=== PATIENT | male | born 1975 | race Hispanic/Latino ===

== ENCOUNTER 2024-02-16 12:48 | Emergency (ER) | payer OTHER ==
[2024-02-16 13:33] LABS: Absolute Basophils 0.1 K/uL (0-0.5); Absolute Eosinophils 0.1 K/uL (0-0.5); Absolute Monocytes 0.7 K/uL (0.1-1.3); Absolute Neutrophil 4.8 K/uL (1.8-8.0); Eosinophils % 1.1 % (0-4.4); Hematocrit 42.8 % (39.6-49.0); Hemoglobin 14.6 g/dL (13.6-17.9); Lymphocytes % 14.7 % (15.3-44.8); MCH 33.6 pg (27.0-35.0); MCV 98.8 fL (80-100); MPV 8.8 fL (7.6-11.3); Monocytes % 10.4 % (3.3-12.3); Neutrophils % 72.8 % (41.7-73.7); Platelets 261 thou/uL (152-406); RBC Red Blood Cell Count 4.33 M/uL (4.33-5.43); Red Cell Distribution Width 14.8 % (12.1-15.2)
[2024-02-16 13:41] LABS: Specific Gravity 1.011 (1.005-1.030); Sqamous Epithelial <5 /HPF (None Seen); Urine Bacteria None Seen /HPF (<20); Urine Bilirubin NEGATIVE (Negative); Urine Blood Negative (Negative); Urine Clarity Clear (Clear); Urine Color Light-Yellow (Yellow); Urine Culture Reflex Order NOT NEEDED; Urine Glucose NEGATIVE (Negative); Urine Ketones NEGATIVE (Negative); Urine Microscopic Reflex YN ORDER UMIC; Urine Nitrite NEGATIVE (Negative); Urine Protein TRACE (Negative); Urine RBC <5 /HPF (None Seen); Urine Urobilinogen 1+ (Normal); Urine WBC None Seen /HPF (<5)
[2024-02-16 13:45] LABS: PT Prothrombin Time 10.8 SECONDS (9.5-12.5); PTT, Activated Partial Thromb 37.7 SECONDS (24.3-36.9); Protime INR 0.98
--- NOTE | 2024-02-16 14:15 | RAD REPORT ---
EXAM DESCRIPTION: Anamika Single View02/16/2024 1:42 pm CLINICAL HISTORY: DYSPNEA COMPARISON: No comparisons TECHNIQUE: Portable AP view of the chest. FINDINGS: The lungs are clear. Decreased inspiratory effort limits evaluation. No pneumothorax or e ffusion. The cardiomediastinal contours are unremarkable. IMPRESSION: No acute cardiopulmonary process.
[2024-02-16 14:39] LABS: Albumin 3.5 g/dL (3.4-5.0); Anion Gap 12.4 mEq/L (5.0-15.0); Globulin 3.5 g/dL (2.3-3.5); Magnesium 1.3 mg/dL (1.6-2.4); Potassium 4.4 mEq/L (3.5-5.1); Troponin High Sensitivity 15.6 pg/mL (<58.9)
[2024-02-16] MEDS ORDERED: Magnesium Sulfate 2gm IVPB 2 G/50 ML BAG IV ONE (15:38)
--- NOTE | 2024-02-16 17:11 | EDPHYS ---
Physician Documentation [facility] Name: Hiram Longo Age: 48 yrs Sex: Male : 1975 Arrival Date: 02/16/2024 Time: 12:48 Bed 17 Private MD: ED Physician Oren Peters HPI: 02/15 14:25 This 48 yrs old Male presents to ER via EMS with complaints of Chest Pain. kb 14:25 Pt is a 48 year old male who presents for sudden onset of shortness of breath and kb diaphoresis while driving just [employer]. States he pulled over and called 911 because he was afraid he was going to pass out. Denies chest pain. States he is feeling better now. . Historical: - Allergies: 13:03 No Known Allergies; db - Home Meds: 13:03 Mounjaro subcutaneous [Active]; db - PMHx: 13:03 diabetes mellitus; Hypertensive disorder; db - Immunization history:: Adult Immunizations unknown. - Infectious Disease History:: Denies. - Social history:: Smoking status: Reported history of juuling and/or vaping. ROS: 13:30 Constitutional: As per HPI kb Exam: 13:25 Constitutional: This is a well developed, well nourished patient who is awake, alert, kb and in no acute distress. Head/Face: Normocephalic, atraumatic. ENT: Moist Mucous membranes Cardiovascular: Regular rate Respiratory: Respirations even and unlabored. No increased work of breathing. Talking in full sentences Abdomen/GI: Soft, non-tender. No distention Skin: Warm, dry with normal turgor. Normal color. MS/ Extremity: Pulses equal, no cyanosis. Neurovascular intact. Full, normal range of motion. Neuro: Awake and alert, GCS 15, oriented to person, place, time, and situation. Moves all extremities. Normal gait. 13:25 ECG was reviewed by the Attending Physician. Vital Signs: 12:50 BP 165 / 79; Pulse 87; Resp 18; Temp 98.7(TE); Pulse Ox 99% ; Weight 152.41 kg; Height db 6 ft. 2 in. ; 13:15 BP 168 / 75; Pulse 89; Resp 18; Pulse Ox 98% on R/A; db 14:00 BP 155 / 71; Pulse 82; Resp 18; Pulse Ox 99% on R/A; db 15:00 BP 155 / 76; Pulse 81; Resp 18; Pulse Ox 100% on R/A; db 15:30 BP 153 / 78; Pulse 78; Resp 20; Pulse Ox 99% ; db 16:30 BP 114 / 99; Pulse 75; Resp 18; Pulse Ox 98% on R/A; db 17:00 BP 114 / 99; Pulse 76; Resp 16; Temp 98.5; Pulse Ox 99% ; db 12:50 Body Mass Index 43.14 (152.41 kg, 187.96 cm) db MDM: 13:01 Patient medically screened. kb 14:26 Data reviewed: vital signs, nurses notes. kb 17:08 Differential diagnosis: acute mi, arrhythmia, near syncope. Consideration of kb Admission/Observation Escalation of care including admission/observation considered. admission considered for increase in troponin and HPI, but pt prefers to go home. States he is feeling fine now and doesn't want to stay in the hospital. Pt educated on risks and verbalized understanding. Pt will follow up with PCP/cadiologist, as well as return for any returning symptoms. . Historians other than the Patient: EMS: [facility]. Counseling: I had a detailed discussion with the patient and/or guardian regarding the historical points, exam findings, and any diagnostic results supporting the discharge/admit diagnosis, lab results, radiology results, the need for outpatient follow up, a welt rander, a family practitioner, to return to the emergency department if symptoms worsen or persist or if there are any questions or concerns that arise at home. 17:11 Refusal of service: The patient/guardian displays adequate decision making capability kb and despite a detailed discussion of alternatives, benefits, risks, and consequences refuses: Admission to the hospital for further work-up and treatment. 02/15 13:05 Order name: CBC with Diff; Complete Time: 13:53 kb 02/15 13:05 Order name: Magnesium; Complete Time: 14:40 kb 02/15 13:05 Order name: Protime (+inr); Complete Time: 13:53 kb 02/15 13:05 Order name: Ptt, Activated; Complete Time: 13:53 kb 02/15 13:05 Order name: Troponin High Sensitivity; Complete Time: 14:40 kb 02/15 13:05 Order name: Urinalysis w/ reflexes; Complete Time: 13:53 kb 02/15 13:05 Order name: CPK; Complete Time: 14:40 kb 02/15 13:05 Order name: CMP; Complete Time: 14:40 kb 02/15 15:53 Order name: Troponin High Sensitivity; Complete Time: 16:54 kb 02/15 13:05 Order name: Chest Single View XRAY; Complete Time: 14:24 kb 02/15 13:05 Order name: Cardiac monitoring; Complete Time: 13: kb 02/15 13:05 Order name: EKG - Nurse/Tech; Complete Time: 13: kb 02/15 13:05 Order name: IV Saline Lock; Complete Time: 13: kb 02/15 13:05 Order name: Labs collected and sent; Complete Time: 13: kb 02/15 13:05 Order name: NPO; Complete Time: 13: kb 02/15 13:05 Order name: O2 Per Protocol; Complete Time: 13: kb 02/15 13:05 Order name: O2 Sat Monitoring; Complete Time: 13: kb 02/15 13:38 Order name: Labs - recollect needed: recollect green top; Complete Time: 14:18 bd EC:25 Rate is 88 beats/min. Rhythm is regular. QRS [place] is Normal. NH interval is normal at kb 172 msec. QRS interval is normal at 96 msec. QT interval is normal at 423 msec. Clinical impression: Normal ECG. Administered Medications: 15:40 Drug: Magnesium Sulfate IVPB 2 grams IVPB once over 1 hrs Route: IVPB; Infused Over: 1 db hrs; Site: left antecubital; 16:40 Follow up: Response: No adverse reaction; IV Status: Completed infusion; IV Intake: db 100ml Disposition Summary: 02/16/24 17:11 Discharge Ordered Notes: Location: Home kb Condition: Stable kb Diagnosis - Essential (primary) hypertension kb - Syncope Near kb Followup: kb - With: Emergency Department - When: As needed - Reason: Worsening of condition Followup: kb - With: Private Physician - When: 2 - 3 days - Reason: Recheck today's complaints, Continuance of care, Re-evaluation by your physician Discharge Instructions: - Discharge Summary Sheet kb - Near-Syncope, [id number] kb - Hypertension, Adult, [id number] kb Forms: - Medication Reconciliation Form kb - Antibiotic Education kb - Prescription Opioid Use kb - Patient Portal Instructions kb - Leadership Thank You Letter kb Signatures: Dispatcher [employer] Josey Potter, SCRAP YARD WORKER-C JUDY-Ashely Farnsworth Danielle, RN RN db
--- NOTE | 2024-02-16 17:11 | ER ---
Nurse's Notes [facility] Name: Hiram Longo Age: 48 yrs Sex: Male : 1975 Arrival Date: 02/16/2024 Time: 12:48 Bed 17 Private MD: Diagnosis: Essential (primary) hypertension;Syncope Near Presentation: 02/15 12:50 Chief complaint: EMS states: DIFFICULTY BREATHING WITH CP AND DIAPHORETIC UPON EMS db ARRIVAL. PT DRIVING FELT SUDDENLY FAINT. PULLED OVER AND CALLED EMS. RECEIVED 2 NITRO SUBLINGUAL TOTAL .8. Coronavirus screen: Client denies travel out of the [place] in the last 14 days. At this time, the client does not indicate any symptoms associated with coronavirus-19. Ebola Screen: Patient negative for fever greater than or equal to 101.5 degrees Fahrenheit, and additional compatible Ebola Virus Disease symptoms Patient denies exposure to infectious person. Patient denies travel to an Ebola-affected area in the 21 days before illness onset. No symptoms or risks identified at this time. Initial Sepsis Screen: Does the patient meet any 2 criteria?. Initial Sepsis Screen: Does the patient have a suspected source of infection? No. Patient's initial sepsis screen is negative. Risk Assessment: Do you want to hurt yourself or someone else? Patient reports no desire to harm self or others. Onset of symptoms was February 16, 2024. 12:50 Method Of Arrival: EMS: [facility] db 12:50 Acuity: ALEX 2 db 12:50 Care prior to arrival: Medication(s) given: Nitroglycerin, 0.4 mg SL x 2, IV initiated. db 18 GA, in the left antecubital area, Glucose check: 82. Triage Assessment: 12:50 General: Appears in no apparent distress. comfortable, Behavior is calm, cooperative. db Pain: Complains of pain in chest Pain currently is 4 out of 10 on a pain scale. at worst was 10 out of 10 on a pain scale. Neuro: Level of Consciousness is awake, alert, obeys commands, Oriented to person, place, time, situation. Cardiovascular: Reports chest pain, diaphoresis, Capillary refill < 3 seconds. Respiratory: Airway is patent Respiratory effort is even, unlabored, Respiratory pattern is regular, symmetrical. Historical: - Allergies: 13:03 No Known Allergies; db - Home Meds: 13:03 Mounjaro subcutaneous [Active]; db - PMHx: 13:03 diabetes mellitus; Hypertensive disorder; db - Immunization history:: Adult Immunizations unknown. - Infectious Disease History:: Denies. - Social history:: Smoking status: Reported history of juuling and/or vaping. Screenin:06 [facility] ED Fall Risk Assessment (Adult) History of falling in the last 3 months, db including since admission No falls in past 3 months (0 pts) Confusion or Disorientation No (0 pts) Intoxicated or Sedated No (0 pts) Impaired Gait No (0 pts) Mobility Assist Device Used No (0 pt) Altered Elimination No (0 pt) Score/Fall Risk Level 0 - 2 = Low Risk Oriented to surroundings, Maintained a safe environment. Abuse screen: Denies threats or abuse. Denies injuries from another. Nutritional screening: No deficits noted. Tuberculosis screening: No symptoms or risk factors identified. Assessment: 13:05 Reassessment: SEE TRIAGE FOR INITIAL ASSESSMENT. db 13:27 Reassessment: Patient appears in no apparent distress at this time. Patient and/or db family updated on plan of care and expected duration. Pain level reassessed. Patient is alert, oriented x 3, equal unlabored respirations, skin warm/dry/pink. General: Appears in no apparent distress. comfortable, Behavior is calm, cooperative. Pain: Complains of pain in chest Pain radiates to chest. Neuro: Level of Consciousness is awake, alert, obeys commands, Oriented to person, place, time, situation. 16:30 Reassessment: Patient appears in no apparent distress at this time. Patient and/or db family updated on plan of care and expected duration. Pain level reassessed. Patient is alert, oriented x 3, equal unlabored respirations, skin warm/dry/pink. Pain: Denies pain. 17:32 Reassessment: Patient appears in no apparent distress at this time. Patient and/or db family updated on plan of care and expected duration. Pain level reassessed. Patient is alert, oriented x 3, equal unlabored respirations, skin warm/dry/pink. Patient states feeling better. Patient states symptoms have improved. Pain: Denies pain. Vital Signs: 12:50 BP 165 / 79; Pulse 87; Resp 18; Temp 98.7(TE); Pulse Ox 99% ; Weight 152.41 kg; Height db 6 ft. 2 in. ; 13:15 BP 168 / 75; Pulse 89; Resp 18; Pulse Ox 98% on R/A; db 14:00 BP 155 / 71; Pulse 82; Resp 18; Pulse Ox 99% on R/A; db 15:00 BP 155 / 76; Pulse 81; Resp 18; Pulse Ox 100% on R/A; db 15:30 BP 153 / 78; Pulse 78; Resp 20; Pulse Ox 99% ; db 16:30 BP 114 / 99; Pulse 75; Resp 18; Pulse Ox 98% on R/A; db 17:00 BP 114 / 99; Pulse 76; Resp 16; Temp 98.5; Pulse Ox 99% ; db 12:50 Body Mass Index 43.14 (152.41 kg, 187.96 cm) db Vitals: 13:15 Cardiac Rhythm Assessment Regular Sinus rhythm. db ED Course: 13:00 Patient arrived in ED. db 13:01 Josey Etienne FNP-C is PHCP. kb 13:01 Oren Peters MD is Attending Physician. kb 13:02 Triage completed. db 13:03 Arm band placed on Patient placed in an exam room. db 13:05 Maintain EMS IV. Dressing intact. Good blood return noted. Site clean \T\ dry. Gauge \T\ db site: 18 G LEFT AC. 13:06 Lana Van, RN is Primary Nurse. db 13:06 Patient has correct armband on for positive identification. Bed in low position. Call db light in reach. Side rails up X2. Client placed on continuous cardiac and pulse oximetry monitoring. NIBP monitoring applied. alarm security or surveillance monitor on. Pulse ox on. NIBP on. 13:22 EKG done, by ED staff, reviewed by Oren Peters MD. db 13:24 Initial lab(s) drawn, by me, sent to lab. db 13:35 Urine collected: clean catch specimen, clear. db 13:44 Chest Single View XRAY In Process Unspecified. EDMS 13:58 Lab(s) recollected, by me, sent to lab. db 17:33 Provided Education on: DISCHARGE AND FOLLOWUP. db 17:33 No provider procedures requiring assistance completed. IV discontinued, intact, db bleeding controlled, No redness/swelling at site. O2 via ROOM AIR. Administered Medications: 15:40 Drug: Magnesium Sulfate IVPB 2 grams IVPB once over 1 hrs Route: IVPB; Infused Over: 1 db hrs; Site: left antecubital; 16:40 Follow up: Response: No adverse reaction; IV Status: Completed infusion; IV Intake: db 100ml Medication: 13:27 VIS not applicable for this client. db Intake: 16:40 IV: 100ml; Total: 100ml. db Outcome: 17:11 Discharge ordered by MD. hook 17:33 Discharged to home ambulatory, db 17:33 Condition: stable 17:33 Discharge instructions given to patient, family, Instructed on discharge instructions, follow up and referral plans. 17:34 Patient left the ED. db Signatures: Dispatcher [employer] EDJosey Dumont, JUDY-C BOMBSIGHT SPECIALIST-Lana Thomas, RN RN db Corrections: (The following items were deleted from the chart) 16:33 16:08 Temp 99.5F Oral; db db
[2024-02-16 17:49] VITALS: BP 114/99; TEMP 98.5; O2SAT 99
--- NOTE | 2024-02-17 16:44 | EKG ---
Test Date: 2024-02-16 Test Time: 13:19:42 Backend Tester: LORIE MEASUREMENT RESULTS: Intervals: Rate: 88 NC: 172 QRSD: 96 QT: 350 QTc: 423 [place]: P: 52 NC: 172 QRS: 18 T: 37 INTERPRETIVE STATEMENTS: Normal sinus rhythm Normal ECG No previous ECG available for comparison Electronically Signed On 02-17-24 16:41:53 CDT by Irving Yang
== END 2024-02-16 17:34 | disposition home or self-care (01) ==
LOC: ER 12:48
DX: I10 Essential (primary) hypertension (principal); R55 Syncope and collapse; E11.9 Type 2 diabetes mellitus without complications
CPT/HCPCS: 85025; 81001; 36415; 83735; 82550; 85610; 85730; 84484 ×2; 80053; 71045; J3475; 93005

== ENCOUNTER 2024-02-21 11:53 | Emergency (ER) | payer OTHER ==
--- NOTE | 2024-02-21 12:28 | RAD REPORT ---
EXAM DESCRIPTION: RAD - Chest Single View - 02/21/2024 12:21 pm CLINICAL HISTORY: CHEST PAIN Chest pain. COMPARISON: Chest Single View dated 02/16/2024 FINDINGS: Portable technique limits examination quality. Interstitial markings are prominent bilaterally. This may indicate interstitial infection such as vir al pneumonitis or mild interstitial pulmonary edema. No focal consolidation typical of pneumonia. The heart is upper limit normal in size. No displaced fractures.
[2024-02-21 12:47] LABS: Absolute Lymphocytes (CBC) 0.6 K/uL (0.7-4.9); Absolute Monocytes 0.3 K/uL (0.1-1.3); Absolute Neutrophil 6.6 K/uL (1.8-8.0); Basophils % 0.6 % (0-1.3); Eosinophils % 0.1 % (0-4.4); Hematocrit 40.8 % (39.6-49.0); Hemoglobin 14.1 g/dL (13.6-17.9); Lymphocytes % 7.9 % (15.3-44.8); MCHC 34.5 g/dL (32.0-36.0); MCV 98.6 fL (80-100); MPV 8.5 fL (7.6-11.3); Monocytes % 3.9 % (3.3-12.3); Neutrophils % 87.5 % (41.7-73.7); Platelets 251 thou/uL (152-406); RBC Red Blood Cell Count 4.13 M/uL (4.33-5.43); Red Cell Distribution Width 14.2 % (12.1-15.2)
[2024-02-21 13:05] LABS: Anion Gap 11.7 mEq/L (5.0-15.0); Potassium 4.7 mEq/L (3.5-5.1); Troponin High Sensitivity 13.5 pg/mL (<58.9)
[2024-02-21 14:15] LABS: Anisocytosis 1+; Blood Morphology Comment NOTED (NOT SEEN); Platelet Estimate ADEQ; Poikilocytosis 1+; White Blood Cell Scan OK (OK)
[2024-02-21] MEDS ORDERED: NA CHLORIDE 0.9% 500 ML ONE (14:28)
--- NOTE | 2024-02-21 14:47 | ER ---
Nurse's Notes [facility] Name: Hiram Longo Age: 48 yrs Sex: Male : 1975 Arrival Date: 02/21/2024 Time: 11:53 Bed 17 Private MD: Diagnosis: Acute stress reaction;Dyspnea, unspecified;Hypo-osmolality and hyponatremia Presentation: 02/20 12:04 Chief complaint: Patient states: SOB and cold sweats since last night. Coronavirus ld1 screen: At this time, the client does not indicate any symptoms associated with coronavirus-19. Ebola Screen: No symptoms or risks identified at this time. Initial Sepsis Screen: Does the patient meet any 2 criteria? No. Patient's initial sepsis screen is negative. Does the patient have a suspected source of infection? No. Patient's initial sepsis screen is negative. Risk Assessment: Do you want to hurt yourself or someone else? Patient reports no desire to harm self or others. Onset of symptoms was February 21, 2024. 12:04 Method Of Arrival: Ambulatory ld1 12:04 Acuity: ALEX 3 ld1 Triage Assessment: 12:04 General: Appears in no apparent distress. comfortable, Behavior is calm, cooperative, ld1 appropriate for age. Pain: Denies pain. EENT: No signs and/or symptoms were reported regarding the EENT system. Neuro: Level of Consciousness is awake, alert, obeys commands, Oriented to person, place, time, situation. Cardiovascular: Capillary refill < 3 seconds Patient's skin is warm and dry. Rhythm is sinus rhythm. Respiratory: Reports shortness of breath at rest on exertion Airway is patent Respiratory effort is even, unlabored, Onset: The symptoms/episode began/occurred suddenly, the patient has moderate shortness of breath. GI: Abdomen is round non-distended. : No signs and/or symptoms were reported regarding the genitourinary system. Derm: No signs and/or symptoms reported regarding the dermatologic system. Musculoskeletal: No signs and/or symptoms reported regarding the musculoskeletal system. Historical: - Allergies: 12:04 No Known Allergies; ld1 - PMHx: 12:04 diabetes mellitus; Hypertensive disorder; ld1 - PSHx: 12:04 Appendectomy; ld1 - Immunization history:: Adult Immunizations up to date. - Infectious Disease History:: Denies. - Social history:: Smoking status: Patient denies any tobacco usage or history of. - Family history:: not pertinent. - Hospitalizations: : No recent hospitalization is reported. Screenin:00 [facility] ED Fall Risk Assessment (Adult) History of falling in the last 3 months, rs5 including since admission No falls in past 3 months (0 pts) Confusion or Disorientation No (0 pts) Intoxicated or Sedated No (0 pts) Impaired Gait No (0 pts) Mobility Assist Device Used No (0 pt) Altered Elimination No (0 pt) Score/Fall Risk Level 0 - 2 = Low Risk Oriented to surroundings, Maintained a safe environment. 12:00 Abuse screen: Denies threats or abuse. Nutritional screening: No deficits noted. rs5 Tuberculosis screening: No symptoms or risk factors identified. 15:12 [facility] ED Fall Risk Assessment (Adult) History of falling in the last 3 months, ld1 including since admission No falls in past 3 months (0 pts). Abuse screen: Denies threats or abuse. Denies injuries from another. Nutritional screening: No deficits noted. Tuberculosis screening: No symptoms or risk factors identified. Assessment: 12:00 General: Appears in no apparent distress. uncomfortable, Behavior is cooperative, rs5 anxious. Pain: Denies pain. Neuro: Level of Consciousness is awake, alert, obeys commands, Oriented to person, place, time, situation. Cardiovascular: Patient's skin is warm and dry. Rhythm is regular. Respiratory: Airway is patent Respiratory effort is even, unlabored, Respiratory pattern is regular, symmetrical, Breath sounds are clear bilaterally. Respiratory: Reports shortness of breath. GI: Abdomen is round non-distended, Abd is soft and non tender X 4 quads. : No signs and/or symptoms were reported regarding the genitourinary system. EENT: No signs and/or symptoms were reported regarding the EENT system. Derm: Skin is intact, Skin is pink, warm \T\ dry. Musculoskeletal: Range of motion: intact in all extremities. 13:10 Reassessment: No changes from previously documented assessment. rs5 14:04 Reassessment: Patient and/or family updated on plan of care and expected duration. Pain rs5 level reassessed. Patient is alert, oriented x 3, equal unlabored respirations, skin warm/dry/pink. 15:12 Reassessment: No changes from previously documented assessment. rs5 Vital Signs: 12:04 BP 195 / 81; Pulse 90; Resp 18; Temp 97.8(TE); Pulse Ox 100% on R/A; Weight 148.78 kg; ld1 Height 6 ft. 2 in. ; Pain 0/10; 12:30 BP 170 / 81; Pulse 81; Resp 18; Pulse Ox 99% on R/A; ld1 15:12 BP 165 / 77; Pulse 77; Resp 18; Pulse Ox 99% on R/A; rs5 12:04 Body Mass Index 42.11 (148.78 kg, 187.96 cm) ld1 12:04 Pain Scale: Adult ld1 ED Course: 11:55 Patient arrived in ED. rg4 11:55 Leroy Mccall MD is Attending Physician. rn 12:04 Triage completed. ld1 12:04 Arm band placed on right wrist. ld1 12:20 Inserted saline lock: 20 gauge in right antecubital area, using aseptic technique. rs5 12:22 XRAY Chest (1 view) In Process Unspecified. EDMS 12:35 Kenya Kelly, RN is Primary Nurse. ld1 15:10 IV discontinued, intact, bleeding controlled, No redness/swelling at site. Pressure rs5 dressing applied. 15:13 No provider procedures requiring assistance completed. IV discontinued, intact, ld1 bleeding controlled, No redness/swelling at site. Administered Medications: 14:25 Drug: NS 0.9% IV 500 ml IV at bolus once Route: IV; Rate: bolus; Site: left antecubital;rs5 15:00 Follow up: Response: No adverse reaction rs5 15:12 Follow up: IV Status: Completed infusion rs5 Outcome: 14:46 Discharge ordered by . rn 15:13 Discharged to home ambulatory, ld1 15:13 Condition: stable 15:13 Discharge instructions given to patient, 15:13 Patient left the ED. ld1 Signatures: Dispatcher [employer] EDMS Leroy Mccall MD MD rn Garcia, Rubi rg4 Kenya Kelly, RN OFE ld1 Eusebio Grant RN RN rs5 Corrections: (The following items were deleted from the chart) 15:11 13:02 Reassessment: Patient and/or family updated on plan of care and expected rs5 duration. Pain level reassessed. Patient is alert, oriented x 3, equal unlabored respirations, skin warm/dry/pink. rs5
--- NOTE | 2024-02-21 14:47 | EDPHYS ---
Physician Documentation [facility] Name: Hiram Longo Age: 48 yrs Sex: Male : 1975 Arrival Date: 02/21/2024 Time: 11:53 Bed 17 Private MD: ED Physician Leroy Mccall HPI: 02/20 12:17 This 48 yrs old Male presents to ER via Ambulatory with complaints of rn Breathing Difficulty. 12:17 The patient has shortness of breath at rest, during emotionally upset. Onset: The rn symptoms/episode began/occurred 1 week(s) ago. Duration: The symptoms are intermittent. The patient's shortness of breath is aggravated by Emotional distress. Associated signs and symptoms: Pertinent positives: diaphoresis, Pertinent negatives: chest pain, non-productive cough, productive cough, fever, hemoptysis. Severity of symptoms: At their worst the symptoms were moderate in the emergency department the symptoms have improved. The patient has experienced similar episodes in the past. The patient has been recently seen at the [facility] Emergency Department. Patient reports approximately 1 week of shortness of breath episodes where he gets clammy and diaphoretic, tingling around his face, slows down his breathing and able to control it with resolution of symptoms. Patient reports this started when notified by ex- of monetary responsibilities. Has happened 3 or 4 episodes since a week ago and all have been during emotional distress or after talking to ex-. Seen here with 2 negative troponins at that time as well as negative chest x-ray, discharged to follow-up with cardiology. Followed up with civil design specialist in [place] who told him he did not believe that this was his heart and more likely anxiety. Patient has outpatient stress test ordered but not performed yet.. Historical: - Allergies: 12:04 No Known Allergies; ld1 - PMHx: 12:04 diabetes mellitus; Hypertensive disorder; ld1 - PSHx: 12:04 Appendectomy; ld1 - Immunization history:: Adult Immunizations up to date. - Infectious Disease History:: Denies. - Social history:: Smoking status: Patient denies any tobacco usage or history of. - Family history:: not pertinent. - Hospitalizations: : No recent hospitalization is reported. ROS: 12:17 Constitutional: Negative for fever, chills, and weight loss, Neck: Negative for injury, rn pain, and swelling, Cardiovascular: Negative for chest pain, palpitations, and edema, Respiratory: Positive for shortness of breath Abdomen/GI: Negative for abdominal pain, nausea, vomiting, diarrhea, and constipation, Back: Negative for injury and pain, MS/Extremity: Negative for injury and deformity, Skin: Negative for injury, rash, and discoloration, Neuro: Negative for headache, weakness, numbness, tingling, and seizure, Exam: 12:17 Constitutional: This is a well developed, well nourished patient who is awake, alert, rn and in no acute distress. Cardiovascular: Regular rate and rhythm. No pulse deficits. Respiratory: Clear bilateral breath sounds. No increased work of breathing, no retractions or nasal flaring. Abdomen/GI: Soft, non-tender MS/ Extremity: Pulses equal, no cyanosis. Neurovascular intact. Full, normal range of motion. Equal circumference. Neuro: Awake and alert, GCS 15 13:34 ECG was reviewed by the Attending Physician. rn Vital Signs: 12:04 BP 195 / 81; Pulse 90; Resp 18; Temp 97.8(TE); Pulse Ox 100% on R/A; Weight 148.78 kg; ld1 Height 6 ft. 2 in. ; Pain 0/10; 12:30 BP 170 / 81; Pulse 81; Resp 18; Pulse Ox 99% on R/A; ld1 15:12 BP 165 / 77; Pulse 77; Resp 18; Pulse Ox 99% on R/A; rs5 12:04 Body Mass Index 42.11 (148.78 kg, 187.96 cm) ld1 12:04 Pain Scale: Adult ld1 MDM: 11:55 Patient medically screened. rn 14:44 Differential diagnosis: Anemia Anxiety Reaction CHF exacerbation, Myocardial Infarction rn pneumonia, Pneumothorax pulmonary edema. Data reviewed: vital signs, nurses notes, lab test result(s), EKG, radiologic studies, plain films, and as a result, I will discharge patient. Counseling: I had a detailed discussion with the patient and/or guardian regarding the historical points, exam findings, and any diagnostic results supporting the discharge/admit diagnosis, lab results, radiology results, the need for outpatient follow up, to return to the emergency department if symptoms worsen or persist or if there are any questions or concerns that arise at home. Special discussion: I discussed with the patient/guardian in detail that at this point there is no indication for admission to the hospital. It is understood, however, that if the symptoms persist or worsen the patient needs to return immediately for re-evaluation. ED course: Patient with out acute findings and workup today. Troponin negative once again. EKG without ischemia. Has already seen cardiology and they do not believe this to be his heart. Chest x-ray nonspecific findings and patient with chronic smoking history. Denied multiple times infectious symptoms of the lungs and does not have a cough for trouble breathing outside of stress episodes. Sodium and chloride mildly low as well, does take multiple [id number] supplements and have asked him to stop that. Will follow-up with PCP for repeat sodium level and given return precautions. I have personally reviewed all of the results, including but not limited to blood tests and imaging deemed necessary to safely discharge this patient at this time. All results given to and printed out for patient. I personally went over all the results with the patient and answered all questions. Patient will follow-up with PCP and or specialist as discussed. Return precautions given and understood.. 02/20 12:16 Order name: Basic Metabolic Panel; Complete Time: rn 02/20 12:16 Order name: CBC with Diff; Complete Time: 14 rn 02/20 12:16 Order name: NT PRO-BNP; Complete Time: rn 02/20 12:16 Order name: Troponin HS; Complete Time: rn 02/20 12:53 Order name: CBC Smear Scan; Complete Time: 14: EDTX 02/20 12:16 Order name: XRAY Chest (1 view); Complete Time: 12: rn 02/20 12:16 Order name: Cardiac monitoring; Complete Time: :02/20 12:16 Order name: EKG - Nurse/Tech; Complete Time: 13:49 rn 02/20 12:16 Order name: IV Saline Lock; Complete Time: 02/20 12:16 Order name: Labs collected and sent; Complete Time: 02/20 12:16 Order name: O2 Per Protocol; Complete Time: :02/20 12:16 Order name: O2 Sat Monitoring; Complete Time: : rn EC:34 Rate is 86 beats/min. Rhythm is regular. QRS [place] is Normal. [place] interval is normal. QRS rn interval is normal. QT interval is normal. No Q waves. T waves are Normal. No ST changes noted. Clinical impression: NSR w/ Non-specific ST/T Changes. Interpreted by me. Reviewed by me. Administered Medications: 14:25 Drug: NS 0.9% IV 500 ml IV at bolus once Route: IV; Rate: bolus; Site: left antecubital;rs5 15:00 Follow up: Response: No adverse reaction rs5 15:12 Follow up: IV Status: Completed infusion rs5 Disposition Summary: 02/21/24 14:46 Discharge Ordered Notes: Location: Home rn Problem: new rn Symptoms: have improved rn Condition: Stable rn Diagnosis - Acute stress reaction rn - Dyspnea, unspecified rn - Hypo-osmolality and hyponatremia rn Followup: rn - With: Private Physician - When: As needed - Reason: Recheck today's complaints, Re-evaluation by your physician Discharge Instructions: - Discharge Summary Sheet rn - Hyperventilation rn - Hyponatremia rn - Shortness of Breath, Adult rn Forms: - Medication Reconciliation Form rn - Antibiotic pattern chart writer - Prescription Opioid Use rn - Patient Portal Instructions rn - Leadership Thank You Letter rn - Work release form [id number] Signatures: Dispatcher [employer] Leroy Reagan MD MD rn Sims, Lauren RN RN ld1 Eusebio Grant, RN RN rs5 Corrections: (The following items were deleted from the chart) 12:16 12:16 Chest Single View+RAD.RAD.BRZ ordered. EDMS EDMS
[2024-02-21 15:48] VITALS: BP 165/77; TEMP 97.8; O2SAT 99
--- NOTE | 2024-02-22 14:45 | EKG ---
Test Date: 2024-02-21 Test Time: 13:30:30 Vallez Filter Operator: KELLY MEASUREMENT RESULTS: Intervals: Rate: 86 PA: 190 QRSD: 98 QT: 364 QTc: 435 Shidler: P: 56 PA: 190 QRS: 20 T: 65 INTERPRETIVE STATEMENTS: Sinus rhythm with occasional premature ventricular complexes Otherwise normal ECG Compared to ECG 02/16/2024 13:19:42 Ventricular premature complex(es) now present Electronically Signed On 02-22-24 14:43:44 CDT by Irving Yang
== END 2024-02-21 15:13 | disposition home or self-care (01) ==
LOC: ER 11:53
DX: F43.0 Acute stress reaction (principal); R06.00 Dyspnea, unspecified; E87.1 Hypo-osmolality and hyponatremia; E11.9 Type 2 diabetes mellitus without complications; I10 Essential (primary) hypertension
CPT/HCPCS: 93005; 85025; 80048; 36415; 84484; 83880; 71045; J7040; 96360; 99284

== ENCOUNTER 2024-02-26 18:49 | Emergency (ER) | payer OTHER ==
[2024-02-26] MEDS ORDERED: LORAZEPAM 1 MG TABLET ONE (19:36)
[2024-02-26 20:47] LABS: SARS-CoV-2 Antigen CONTROL BLUE LINE VIS/BG OK; SARS-CoV-2 Antigen Rapid Res Negative (Negative)
--- NOTE | 2024-02-26 21:48 | EDPHYS ---
Physician Documentation [facility] Name: Hiram Longo Age: 48 yrs Sex: Male : 1975 Arrival Date: 02/26/2024 Time: 18:49 Bed [id number] Private MD: ED Physician Leroy Mccall HPI: 02/25 19:40 This 48 yrs old Male presents to ER via Ambulatory with complaints of cp Shortness Of Breath. 19:40 The patient has shortness of breath at rest. cp 19:40 Onset: The symptoms/episode began/occurred 3 week(s) ago, intermittent. cp 19:40 Duration: The symptoms are intermittent. The patient's shortness of breath has no cp apparent modifying factors. Associated signs and symptoms: Pertinent positives: sweating and tingling of hands, Pertinent negatives: chest pain, non-productive cough, productive cough, fever. Severity of symptoms: in the emergency department the symptoms have improved. Historical: - Allergies: 19:33 No Known Allergies; km8 - PMHx: 19:33 diabetes mellitus; Hypertensive disorder; km8 - PSHx: 19:33 Appendectomy; km8 - Immunization history:: Adult Immunizations unknown. - Infectious Disease History:: Denies. - Social history:: Smoking status: Reported history of juuling and/or vaping. Patient uses alcohol, only on a social basis. Patient/guardian denies using street drugs. ROS: 19:45 Constitutional: Negative for body aches, chills, fever, poor PO intake, cp 19:45 Cardiovascular: Positive for palpitations, Negative for chest pain, cp 19:45 Respiratory: Positive for shortness of breath, 19:45 Abdomen/GI: Negative for abdominal pain, 19:45 Neuro: Positive for tingling, Vital Signs: 19:26 BP 145 / 84; Pulse 77; Resp 16; Pulse Ox 100% on R/A; Weight 148.78 kg; Height 6 ft. 2 km8 in. ; Pain 0/10; 19:26 Body Mass Index 42.11 (148.78 kg, 187.96 cm) km8 19:26 Pain Scale: Adult km8 MDM: 19:31 Patient medically screened. cp 21:46 Data reviewed: vital signs, nurses notes, lab test result(s). cp 02/25 19:33 Order name: SARS RAPID; Complete Time: 20:58 cp 02/25 20:58 Interpretation: Reviewed. cp 02/25 19:33 Order name: Influenza Screen (a \T\ B); Complete Time: 20:58 cp 02/25 20:58 Interpretation: Reviewed. cp 02/25 19:33 Order name: RSV; Complete Time: 20:58 cp 02/25 20:58 Interpretation: Reviewed. cp 02/25 21:00 Order name: EKG; Complete Time: 21:00 cp 02/25 21:00 Order name: EKG - Nurse/Tech 02/25 21:00 Order name: IV cp Administered Medications: 19:41 Drug: LORazepam PO 2 mg PO once Route: PO; km8 Disposition Summary: 02/26/24 21:47 Discharge Ordered Notes: Location: Home cp Problem: an ongoing problem cp Symptoms: are unchanged cp Condition: Stable cp Diagnosis - Shortness of breath cp - Paresthesia of skin cp Followup: cp - With: Private Physician - When: 1 - 2 days - Reason: Recheck today's complaints Discharge Instructions: - Discharge Summary Sheet cp - Paresthesia cp - Shortness of Breath, Adult cp Forms: - Medication Reconciliation Form cp - Antibiotic Education cp - Prescription Opioid Use cp - Patient Portal Instructions cp - Leadership Thank You Letter cp Addendum: 02/27/2024 23:33 Co-signature as Attending Physician, Leroy Mccall MD I reviewed the patient's care r n provided by the Advanced Practice Provider and agree with the diagnosis and treatment plan. Signatures: Dispatcher [employer] EDLeroy Soares MD MD rn Page, Corey, PA PA Carmelita Francis RN RN km8 Corrections: (The following items were deleted from the chart) 02/25 19:33 19:33 SARS-COV-2 Antigen Rapid+I.LAB.BRZ ordered. EDMS EDMS 19:33 19:33 Influenza Screen (A \T\ B)+BA.LAB.BRZ ordered. EDMS EDMS 19:33 19:33 Respiratory Syncytial Virus Ag+BA.LAB.BRZ ordered. EDMS EDMS
--- NOTE | 2024-02-26 21:48 | ER ---
Nurse's Notes [facility] Name: Hiram Longo Age: 48 yrs Sex: Male : 1975 Arrival Date: 02/26/2024 Time: 18:49 Bed [id number] Private MD: Diagnosis: Shortness of breath;Paresthesia of skin Presentation: 02/25 19:23 Chief complaint: Patient states: last 3 weeks having intermittent "episodes" of chest km8 tightness, hand sweating, and SOB; today's episode started at 1330. Coronavirus screen: Client denies travel out of the [place] in the last 14 days. Ebola Screen: No symptoms or risks identified at this time. Initial Sepsis Screen: Does the patient meet any 2 criteria? No. Patient's initial sepsis screen is negative. Does the patient have a suspected source of infection? No. Patient's initial sepsis screen is negative. Risk Assessment: Do you want to hurt yourself or someone else? Patient reports no desire to harm self or others. Onset of symptoms was February 26, 2024 at 13:30. 19:23 Method Of Arrival: Ambulatory km8 19:28 Acuity: ALEX 4 km8 Triage Assessment: 19:26 General: Appears in no apparent distress. comfortable, Behavior is cooperative, km8 appropriate for age, anxious. EENT: No signs and/or symptoms were reported regarding the EENT system. Neuro: Level of Consciousness is awake, alert, obeys commands, Oriented to person, place, time, situation. Cardiovascular: Denies chest pain, shortness of breath, Patient's skin is warm and dry. Respiratory: Reports shortness of breath at rest Onset: The symptoms/episode began/occurred gradually, the patient has mild shortness of breath. GI: No signs and/or symptoms were reported involving the gastrointestinal system. : No signs and/or symptoms were reported regarding the genitourinary system. Derm: Skin is intact, is healthy with good turgor, Skin is dry, Skin is pink, warm \\T\\ dry. normal, Skin temperature is warm. Musculoskeletal: No signs and/or symptoms reported regarding the musculoskeletal system. Circulation, motion, and sensation intact. Range of motion: intact in all extremities. 19:26 Pain: Denies pain. km8 Historical: - Allergies: 19:33 No Known Allergies; km8 - PMHx: 19:33 diabetes mellitus; Hypertensive disorder; km8 - PSHx: 19:33 Appendectomy; km8 - Immunization history:: Adult Immunizations unknown. - Infectious Disease History:: Denies. - Social history:: Smoking status: Reported history of juuling and/or vaping. Patient uses alcohol, only on a social basis. Patient/guardian denies using street drugs. Screenin:33 [facility] ED Fall Risk Assessment (Adult) History of falling in the last 3 months, km8 including since admission No falls in past 3 months (0 pts) Confusion or Disorientation No (0 pts) Intoxicated or Sedated No (0 pts) Impaired Gait No (0 pts) Mobility Assist Device Used No (0 pt) Altered Elimination No (0 pt) Score/Fall Risk Level 0 - 2 = Low Risk Oriented to surroundings, Maintained a safe environment, Educated pt \\T\\ family on fall prevention, incl call for assistance when getting out of bed, Assessed \\T\\ reinforced patient's understanding of fall precautions. Abuse screen: Denies threats or abuse. Denies injuries from another. Nutritional screening: No deficits noted. Tuberculosis screening: No symptoms or risk factors identified. Assessment: 19:23 Reassessment: see triage assessment. km8 21:36 Reassessment: Pt called by to see if Pt will come back. waiting for response. vc1 Vital Signs: 19:26 BP 145 / 84; Pulse 77; Resp 16; Pulse Ox 100% on R/A; Weight 148.78 kg; Height 6 ft. 2 km8 in. ; Pain 0/10; 19:26 Body Mass Index 42.11 (148.78 kg, 187.96 cm) 8 19:26 Pain Scale: Adult [facility] ED Course: 18:51 Patient arrived in ED. ra3 19:10 Ronaldo Torres PA is PHCP. cp 19:10 Leroy Mccall MD is Attending Physician. cp 19:26 Arm band placed on right wrist. km8 19:28 Triage completed. km8 19:33 Patient has correct armband on for positive identification. km8 19:34 COVID swab sent to lab. Flu and/or RSV swab sent to lab. km8 19:41 Patient placed in waiting room, Patient notified of wait time. km8 19:41 RSV Sent. km8 19:41 Influenza Screen (a \\T\\ B) Sent. km8 19:41 SARS RAPID Sent. km8 21:30 Patient's name was called from ER lobby. No response. Unable to locate patient. Will vc1 disposition as left without being seen by a provider. Administered Medications: :41 Drug: LORazepam PO 2 mg PO once Route: PO; 8 Medication: 19:33 VIS not applicable for this client. 8 Outcome: 21:47 Discharge ordered by . bernardo 21:55 Eloped from waiting room, Time discovered patient gone: February 26, 2024 at 21:30 vc1 21:55 Patient left the ED. vc1 Signatures: Ronaldo Torres PA PA cp Calcote, Vanessa RN RN 1 Carmelita Duarte RN RN 8 Michelle Slater ra3 Corrections: (The following items were deleted from the chart) 19:29 19:26 Pain: [place] [id number] 19:30 19:26 BP 145 / 84; Pulse 77bpm; Resp 16bpm; Pulse Ox 100% RA; [place] [id number]
[2024-02-26 22:22] VITALS: BP 145/84; O2SAT 100
== END 2024-02-26 21:55 | disposition home or self-care (01) ==
LOC: ER 18:49
DX: R06.02 Shortness of breath (principal); R20.2 Paresthesia of skin; E11.9 Type 2 diabetes mellitus without complications; I10 Essential (primary) hypertension; Z11.52 Encounter for screening for COVID-19
CPT/HCPCS: 36415; 87804; 87807; 87811; 99283